=== PATIENT | female | born 1955 | race Native Hawaiian/Other Pacific Islander ===

== ENCOUNTER 2018-06-27 12:53 | Outpatient (CLI) | payer BC | END 2018-06-27 21:19 | disposition home or self-care (01) | LOC: MAMMO 12:53 | DX: Z12.31 Encounter for screening mammogram for malignant neoplasm of breast (principal) ==

== ENCOUNTER 2018-12-26 12:45 | Outpatient (CLI) | payer BC | END 2018-12-26 20:38 | disposition home or self-care (01) | LOC: MAMMO 12:45 | DX: R92.8 Other abnormal and inconclusive findings on diagnostic imaging of breast (principal) ==

== ENCOUNTER 2019-09-02 10:12 | Outpatient (CLI) | payer BC | END 2019-09-02 19:00 | disposition home or self-care (01) | LOC: RAD 10:12 | DX: R06.09 Other forms of dyspnea (principal) ==